=== PATIENT | male | born 1960 | race African-American/Black ===

== ENCOUNTER 2023-10-28 09:19 | Inpatient (IN) ==
--- NOTE | 2023-10-28 09:29 | Emergency Department Note ---
Impression & Plan Chest pain, Abnormal EKG, Elevated troponin I level ED Provider Note NAME: EMMA HAJI [id number] [place] AGE: 63 SEX: M : 1960 ARRIVES VIA: Ambulance INFORMANT: Patient, ED PROVIDER(S): García Rocha DO CHIEF COMPLAINT: Chest pain HPI: The patient is a 63-year-old male who presented to the emergency department by ambulance for an evaluation of chest pain. The patient has been experiencing chest pain for approximately 1 month. He recently transferred to a local half-way yesterday. When he told him about his chest pain he was sent to the emergency department for further evaluation. The patient was treated with aspirin and nitroglycerin prior to arrival. He states his pain is improved. He denies having any lower extremity swelling. He denies having any abdominal pain or vomiting. He states he does note some shortness of breath. The patient states he had a cardiac catheterization in 2022. He does not remember getting any stents but he was told he did have a heart attack. ROS: See above HPI for pertinent positives & negatives. A total of 10 systems reviewed and were otherwise negative. PAST MEDICAL HISTORY: See Below PAST SURGICAL HISTORY: See Below FAMILY HISTORY: See Below SOCIAL HISTORY: See Below HOME MEDICATIONS: See Below ALLERGIES: See Below VITALS: See Below PHYSICAL EXAMINATION: GENERAL: Patient is awake alert in no acute distress patient is resting comfortably and showing no signs of anxiety EYES: The conjunctivae are clear. The pupils are round and reactive. EARS, NOSE, MOUTH AND THROAT: The nose is without any evidence of any deformity. NECK: The neck is nontender and supple. RESPIRATORY: Normal respiratory effort is noted there is no evidence of wheezing rhonchi or rales CARDIOVASCULAR: Regular rate and rhythm noted there no murmurs rubs or gallops normal S1 normal S2. GASTROINTESTINAL: The abdomen is soft. Abdomen is nontender. MUSCULOSKELETAL/EXTREMITIES: There is no evidence of gross deformity full range of motion is noted in the hips and shoulders. SKIN: There is no obvious evidence of any rash. There are no petechiae, pallor or cyanosis noted. NEUROLOGIC: Patient is awake alert and oriented x3 MEDICAL DECISION MAKING: The patient is a 63-year-old male who presented to the emergency department for an evaluation of chest pain. The patient's been having chest pain for approximately 1 month. The patient was recently transferred to one of our local presents. When he told him about his chest pain they sent the patient to the emergency department for further evaluation. The patient did have an EKG done at the half-way that did show some nonspecific ST segment abnormalities. He was treated with aspirin and nitroglycerin prior to arrival and at this time his pain is significantly improved. He was not tachycardic or hypoxic. D-dimer is normal. I discussed the patient's laboratory and radiographic studies with him. I discussed the limitations of the emergency department workup for chest pain with him. Given his current living situation I do feel the patient would be a better candidate for inpatient management. His case was discussed with the [facility]ist. Triage Nursing notes reviewed. Prior medical records reviewed Vital Signs: reviewed and remarkable for no significant abnormalities Differential diagnosis: Cardiac ischemia, aortic dissection, pulmonary embolism, pneumothorax, pneumonia, pericarditis, myocarditis, esophageal rupture, GERD, cholecystitis, pancreatitis, musculoskeletal, as well as other pathologies. ER treatment provided: See below Diagnostics interpreted by me: ECG: EKG was obtained in the emergency department. My interpretation is normal sinus rhythm at 56 bpm. There is no ectopy. Inferior T wave abnormalities are noted. There is no acute ST segment abnormalities noted. This was compared to a tracing that was obtained in the half-way this morning. ST segment depressions were noted in the inferior and lateral leads on the tracing done at the half-way. That is since improved. Cardiac Monitoring: An order was placed for continuous cardiac monitoring. The monitor shows a rate of 57 bpm with sinus bradycardia. Laboratory studies: As stated above and show below. Imaging studies: See below. Radiographic imaging was reviewed by myself Consultation(s): I discussed this case with Dr. Salazar who is on-call for the [facility] hospitalist group. Past Med/Surg History Problem List (Updated 10/28/23 @ 10:29 by García Rocha DO) Elevated troponin I level (Acute) Abnormal EKG (Acute) Chest pain (Acute) Hypertension High cholesterol HIV disease Social History Smoking Status: Never smoker Feels Safe at Home: Yes Results & Data (ED) Vital Signs Vital Signs - 24 hr 10/28/23 09:32 10/28/23 09:34 10/28/23 09:45 Temperature 36.5 C Temperature Source Oral Pulse Rate 59 L 57 L 58 L Pulse Rate from SpO2 Sensor Pulse Rhythm Regular Regular Pulse Strength Normal Respiratory Rate 22 18 Respiratory Effort / Characteristics Non-Labored Respiratory Depth Normal Respiratory Pattern Regular Blood Pressure 123/79 Blood Pressure Mean 93 Blood Pressure Position Sitting Pulse Oximetry 96 95 Oxygen Delivery Method Room Air Room Air Sepsis Recent Fever Within 48 Hours No Sepsis New/Unexplained Change in Mental Status N/A Sepsis Action Taken by Nursing No Action Required 10/28/23 10:00 Temperature Temperature Source Pulse Rate 57 L Pulse Rate from SpO2 Sensor 58 L Pulse Rhythm Pulse Strength Respiratory Rate 14 Respiratory Effort / Characteristics Respiratory Depth Respiratory Pattern Blood Pressure 107/71 Blood Pressure Mean 83 Blood Pressure Position Pulse Oximetry 96 Oxygen Delivery Method Sepsis Recent Fever Within 48 Hours Sepsis New/Unexplained Change in Mental Status Sepsis Action Taken by Shelter Medications Current Medication List: was personally reviewed by me Laboratory Data Attestation: I reviewed the patient's lab results. 10/28/23 09:42 10/28/23 09:42 Lab Results 10/28/23 10/28/23 Range/Units 09:33 09:42 WBC 3.94 L (4.8-10.8) K/ul RBC 5.07 (4.70-6.10) M/uL Hgb 14.5 (14.0-18.0) g/dl Hct 44.6 (42.0-52.0) % MCV 88.0 (80.0-100.0) fL MCH 28.6 (25.0-34.0) pg MCHC 32.5 (32.0-36.0) g/dL RDW Std Deviation 41.0 (36.4-46.3) fL RDW Coeff of Edwina 12.7 (11.5-14.5) % Plt Count 161 (130-400) K/uL MPV 10.6 (9.4-12.4) fL Immature Gran % (Auto) 0.0 % Neut % (Auto) 60.1 % Lymph % (Auto) 24.9 % [place] % (Auto) 13.2 % Eos % (Auto) 1.3 % Baso % (Auto) 0.5 % Neut # (Auto) 2.37 (1.40-6.50) K/uL Lymph # (Auto) 0.98 L (1.20-3.40) K/uL [place] # (Auto) 0.52 (0.11-0.59) K/uL Eos # (Auto) 0.05 (0.00-0.50) K/uL Baso # (Auto) 0.02 (0.00-0.20) K/uL Immature Gran # (Auto) 0.00 L (0.01-0.20) K/uL PT 10.7 (9.0-12.0) Seconds INR 1.0 (0.9-1.1) APTT 27 (21-31) Seconds PTT Ratio 1.0 D-Dimer 190 (0-500) ug/L FEU Sodium 138 (136-145) mmol/L Potassium 4.3 (3.5-5.1) mmol/L Chloride 109 H (98-107) mmol/L Carbon Dioxide 23 (21-32) mmol/L Anion Gap 6 (3-11) BUN 22 (6-23) mg/dl Creatinine 1.51 H (0.6-1.4) mg/dl Est Cr Clr Drug Dosing 49.6 ml/min Est GFR ( Amer) 55.8 ml/min Est GFR (Non-Af Amer) 48.1 ml/min BUN/Creatinine Ratio 14.6 (10-20) Glucose 99 (70-99(Fasting)) mg/dl Calcium 9.5 (8.6-10.3) mg/dl Total Bilirubin 0.7 (0.2-1.0) mg/dl AST 23 (13-39) U/L ALT 18 (7-52) U/L Alkaline Phosphatase 58 (34-104) U/L Troponin I High Sens 23.5 H (0-20) pg/ml Total Protein 6.7 (6.0-8.3) gm/dl Albumin 4.2 (3.4-5.0) gm/dl Globulin 2.5 (2.5-4.0) gm/dl Albumin/Globulin Ratio 1.7 (0.9-2) Lipase 26 (11-82) U/L SARS-CoV-2 (PCR) NEGATIVE (Negative) Influenza Type A (PCR) Negative (Neg) Influenza Type B (PCR) Negative (Neg) RSV (RT-PCR) Negative (Neg) Imaging Data Attestation: I personally reviewed and interpreted this imaging study as follows: My Impression: 1 view chest x-ray was obtained in the emergency department. My interpretation is no free air or definite infiltrate, final report pending. Radiologist's Impression: Chest X-Ray 10/28/23 09:24 XR chest 1V portable HISTORY: Chest pain, nonspecific COMPARISON: None. FINDINGS: The lungs are clear. The heart is normal in size. No pleural effusions. No pneumothorax. There are old right-sided rib fractures. IMPRESSION: No acute process. ACT 112: Negative or not required by law. Electronically signed by: Baljeet Way M.D. 10/28/2023 10:15 AM Discharge Plan Visit Data Chief Complaint: Chest Pain Stated Complaint: CHEST PAIN ED Provider: García Rocha Discharge Problem: Chest pain, Abnormal EKG, Elevated troponin I level Patient Disposition: Being Evaluated by Hospitalist Forms Stand Alone Forms: [facility] Referrals Referrals: Kev VILLALOBOS [Primary Care Provider] - Discharge Problem: Chest pain Qualifiers: Chest pain type: unspecified Qualified Code(s): R07.9 - Chest pain, unspecified
[2023-10-28 10:01] LABS: Basophils # (auto) 0.02 K/uL (0.00-0.20); Basophils % (auto) 0.5 %; Eosinophils # (auto) 0.05 K/uL (0.00-0.50); Eosinophils % (auto) 1.3 %; Hematocrit (blood only) 44.6 % (42.0-52.0); Hemoglobin 14.5 g/dl (14.0-18.0); Lymphocytes # (auto) 0.98 K/uL (1.20-3.40); Lymphocytes % (auto) 24.9 %; Mean Corpuscular Hemoglobin 28.6 pg (25.0-34.0); Mean Corpuscular Hgb Conc 32.5 g/dL (32.0-36.0); Mean Platelet Volume 10.6 fL (9.4-12.4); Monocytes # (auto) 0.52 K/uL (0.11-0.59); Monocytes % (auto) 13.2 %; Neutrophils # (auto) 2.37 K/uL (1.40-6.50); Neutrophils % (auto) 60.1 %; Platelet Count 161 K/uL (130-400); RDW Coefficient of Variation 12.7 % (11.5-14.5); Red Blood Count 5.07 M/uL (4.70-6.10); White Blood Count 3.94 K/ul (4.8-10.8)
--- NOTE | 2023-10-28 10:16 | XRay Report ---
XR chest 1V portable HISTORY: Chest pain, nonspecific COMPARISON: None. FINDINGS: The lungs are clear. The heart is normal in size. No pleural effusions. No pneumothorax. Th ere are old right-sided rib fractures. IMPRESSION: No acute process. ACT 112: Negative or not required by law. Electronically signed by: Baljeet Way M.D. 10/28/2023 10:15 AM
[2023-10-28 10:17] LABS: Albumin Globulin Ratio 1.7 (0.9-2); Albumin Level 4.2 gm/dl (3.4-5.0); BUN Creatinine Ratio 14.6 (10-20); Bilirubin,Total 0.7 mg/dl (0.2-1.0); Calcium 9.5 mg/dl (8.6-10.3); Creatinine Clr Calc Pharmacy 49.6 ml/min; Est GFR (African American) 55.8 ml/min; Est GFR (Non-African American) 48.1 ml/min; Globulin 2.5 gm/dl (2.5-4.0); Potassium 4.3 mmol/L (3.5-5.1); Total Protein 6.7 gm/dl (6.0-8.3)
[2023-10-28 10:18] LABS: Influenza A virus by PCR Negative (Neg); Influenza B virus by PCR Negative (Neg); RSV by PCR Negative (Neg); SARS CoV2 RNA(COVID-19) Ceph NEGATIVE (Negative)
[2023-10-28 10:23] LABS: Troponin I High Sensitivity 23.5 pg/ml (0-20)
[2023-10-28 10:26] LABS: D Dimer 190 ug/L FEU (0-500); Partial Thromboplastin Time 27 Seconds (21-31); Prothrombin Time 10.7 Seconds (9.0-12.0)
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
[2023-10-28] MEDS ORDERED: ALBUTEROL 0.5% NEB SOLN 2.5 MG/0.5 ML VIAL NEB PRN (11:43)
[2023-10-28 11:58] LABS: Magnesium 2.3 mg/dl (1.7-2.4)
[2023-10-28 12:05] LABS: Troponin I High Sensitivity 22.5 pg/ml (0-20)
[2023-10-28] MEDS: LOSARTAN POTASSIUM 50 MG TAB PO STA (12:52)
[2023-10-28] MEDS: ACETAMINOPHEN 500 MG TAB PO STA (12:56)
[2023-10-28] MEDS: LIDOCAINE 5% 1 PATCH TD STA (12:57)
[2023-10-28] MEDS: SPIRONOLACTONE 25 MG TAB PO ONE (12:57)
[2023-10-28] MEDS ORDERED: ACETAMINOPHEN 325 MG TAB PO PRN (14:53)
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
--- NOTE | 2023-10-28 16:35 | XCELERA ---
[id number]
[2023-10-28] MEDS: ENOXAPARIN INJ 40 MG/0.4 ML SYR SQ SCH (17:11)
[2023-10-28] MEDS: DAPAGLIFLOZIN PROPANEDIOL 10 MG SCH (17:11)
[2023-10-28] MEDS: LORazepam 1 MG in SYRINGE 0.5 ML IV PRN (17:49)
--- NOTE | 2023-10-28 19:34 | Magnetic Resonance Report ---
CLINICAL HISTORY: cervical radiculopathy TECHNIQUE: MRI of the cervical spine is performed utilizing various T1 and T2 sequences in the axial and sagittal planes. IV contrast was not administered for this examination. Comparison: None available at the time of this dictation. FINDINGS: Exam is limited by patient motion. The alignment is anatomical. C2-C3: Broad-based posterior disc bulge is seen with moderate canal stenosis, AP diameter of 4 mm. C3-C4: Broad-based posterior disc bulge is seen with moderate canal stenosis, AP diameter 6 mm, and s evere right and moderate left neuroforaminal stenosis. C4-C5: Broad-based posterior disc bulge is seen with moderate bilateral neuroforaminal stenosis. C5-C6: Facet arthropathy results in mild bilateral neural foraminal stenosis. C6-C7: Broad-based posterior disc bulge is seen with mild canal stenosis and severe bilateral neurofo raminal stenosis. C7-T1: Facet arthropathy results in moderate bilateral neural foraminal stenosis. The spinal ligaments are intact, without evidence of disruption or abnormal signal intensity. The spi nal cord is normal in signal intensity and there is no evidence of cord edema. There is no evidence o f an extradural, intradural, extramedullary or intramedullary lesion. Visualized soft tissues are nor mal. Visualized brain parenchyma is normal. IMPRESSION: Multilevel degenerative changes are seen with up to moderate canal stenosis, AP diameter 4 mm, and se miguelina bilateral neuroforaminal stenosis. ACT 112: Negative or not required by law. Electronically signed by: Darrell Schofield M.D. 10/28/2023 7:32 PM
[2023-10-28] MEDS: LORATADINE 10 MG TAB PO SCH (20:37)
[2023-10-28] MEDS: hydrOXYzine HCl 25 MG TAB PO SCH (20:37)
[2023-10-28] MEDS: ATORVASTATIN 10 MG TAB PO SCH (20:37)
--- NOTE | 2023-10-28 21:15 | Electrocardiogram Report ---
Test Reason : Blood Pressure : / mmHG Vent. Rate : 056 BPM Atrial Rate : 056 BPM P-R Int : 180 ms QRS Dur : 094 ms QT Int : 410 ms P-R-T Axes : 042 -10 -31 degrees QTc Int : 395 ms Sinus bradycardia Nonspecific ST and T wave abnormality Inferolateral leads Abnormal ECG No previous ECGs available Confirmed by Travis Sharma ([id number]) on 10/28/2023 9:15:35 PM Referred By: REFERRED SELF Confirmed By:Travis Sharma
[2023-10-29 06:41] LABS: Basophils # (auto) 0.01 K/uL (0.00-0.20); Basophils % (auto) 0.3 %; Eosinophils # (auto) 0.07 K/uL (0.00-0.50); Eosinophils % (auto) 2.1 %; Hematocrit (blood only) 45.4 % (42.0-52.0); Hemoglobin 14.9 g/dl (14.0-18.0); Immature Granulocytes # (auto) 0.01 K/uL (0.01-0.20); Immature Granulocytes % (auto) 0.3 %; Lymphocytes # (auto) 1.27 K/uL (1.20-3.40); Lymphocytes % (auto) 37.7 %; Mean Corpuscular Hemoglobin 28.7 pg (25.0-34.0); Mean Corpuscular Hgb Conc 32.8 g/dL (32.0-36.0); Mean Corpuscular Volume 87.3 fL (80.0-100.0); Mean Platelet Volume 10.9 fL (9.4-12.4); Monocytes # (auto) 0.42 K/uL (0.11-0.59); Monocytes % (auto) 12.5 %; Neutrophils # (auto) 1.59 K/uL (1.40-6.50); Neutrophils % (auto) 47.1 %; Platelet Count 163 K/uL (130-400); RDW Coefficient of Variation 12.6 % (11.5-14.5); White Blood Count 3.37 K/ul (4.8-10.8)
[2023-10-29 06:50] LABS: Albumin Globulin Ratio 1.6 (0.9-2); Albumin Level 4.2 gm/dl (3.4-5.0); BUN Creatinine Ratio 14.9 (10-20); Bilirubin,Total 0.4 mg/dl (0.2-1.0); Calcium 9.3 mg/dl (8.6-10.3); Est GFR (African American) 51.6 ml/min; Est GFR (Non-African American) 44.5 ml/min; Globulin 2.6 gm/dl (2.5-4.0); Total Protein 6.8 gm/dl (6.0-8.3)
[2023-10-29 06:51] LABS: Prothrombin Time 10.5 Seconds (9.0-12.0)
[2023-10-29 07:04] LABS: Troponin I High Sensitivity 19.6 pg/ml (0-20)
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
--- NOTE | 2023-10-29 08:59 | Electrocardiogram Report ---
Test Reason : Blood Pressure : / mmHG Vent. Rate : 050 BPM Atrial Rate : 050 BPM P-R Int : 178 ms QRS Dur : 092 ms QT Int : 490 ms P-R-T Axes : 056 009 -07 degrees QTc Int : 446 ms Sinus bradycardia Nonspecific T wave abnormality When compared with ECG of 28-OCT-2023 09:25, No significant change Confirmed by Ajay Perry ([id number]) on 10/29/2023 8:59:39 AM Referred By: REFERRED SELF Confirmed By:Ajay Perry
[2023-10-29] MEDS: POLYETHYLENE (MIRALAX) 17 GM PACK PO ONE (09:07)
[2023-10-29] MEDS: SPIRONOLACTONE 25 MG TAB PO SCH (09:08)
[2023-10-29] MEDS: DOLUTEGRAVIR PO SCH (09:08)
[2023-10-29] MEDS: LOSARTAN POTASSIUM 50 MG TAB PO SCH (09:08)
[2023-10-29] MEDS: RILPIVIRINE PO SCH (09:08)
[2023-10-29] MEDS: METOPROLOL SUCC 50MG EXT REL TAB PO SCH (09:11)
[2023-10-29] MEDS: GABAPENTIN 100 MG CAP PO SCH (11:52)
[2023-10-29] MEDS: FLUTICASONE/VILANTEROL 100/25MCG 14 PUFFS/INHALER INH SCH (17:18)
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
== END 2023-10-29 19:28 | DRG 74 ==
LOC: ED 09:19 → SUATTDRO 11:36 → 2S 11:36 → 2W 10-29 15:56